=== PATIENT | male | born 1985 | race African-American/Black ===

== ENCOUNTER → 2019-10-17 | Day surgery (SDC) | payer OTHER ==
[~2019-10-17] MED LIST: ACETAMINOPHEN 325 MG TABLET PO PRN; ALBUTEROL SULFATE 2.5 MG/3 ML NEBU. NEB PRN; ASPI81TA50 PO; ATOR20TA58 PO; ATROPINE 0.5 MG/5 ML DISP.SYRIN. IV PRN; GABA-587 PO; IV RINGERS SOLUTION,LACTATED 1,000 ML IV SCH; LIDOCAINE 2% PF Vial for OR 5 ML VIAL. ONE; LOSA50TA86 PO; MELO15TA23 PO; MIDAZOLAM HCL PF 2 MG/2 ML VIAL. IV PRN; NORT25CA PO; OMEP-229 PO; OMEP40CA45 PO; ONDANSETRON PF 4 MG/2 ML VIAL. IV PRN; PHENOL ORAL SPRAY 177ML BOTTLE. MM PRN; PROPOFOL 20 ML IV ONE; SUCR1TAB35 PO; XOPENEX HFA15 GM IH; diphenhydrAMINE 50 MG/ML VIAL IV PRN
[2019-10-17 11:42] VITALS: BP 147/91
--- NOTE | 2019-10-21 14:07 | PATHOLOGY ---
[facility] Accession Number: [id number] . 01 Material submitted: . stomach - ANTRUM BIOPSY . 01 Clinical history: . Ulcer. . 02 Diagnosis: Gastric biopsies, antrum: - Chronic gastritis, moderate. . ([facility]; 10/21/2019) S 10/21/2019 1000 Local . 02 Comment: Sections of the gastric antral biopsy show congestion and moderate chronic inflammation. A properly controlled immunoperoxidase stain for Helicobacter is negative for Helicobacter organisms. There is no evidence of malignancy. ([facility]; 10/21/2019) . . Special stain performed: Immunoperoxidase stain for Helicobacter . 02 Electronically signed: . Froylan Wayne MD, Pathologist NPI- [id number] . 01 Gross description: . Received in formalin labeled "Mendoza, Buddy, antrum BX gastritis" is a 0.6 x 0.4 x 0.1 cm aggregate of epstein-brown mucosa fragments. The specimen is submitted in A1. ([facility]; 10/18/2019) [facility] 10/18/2019 1004 Local . 02 Pathologist provided ICD-10: K29.50 . 02 CPT . 387824, [id number] Specimen Comment: A courtesy copy of this report has been sent to [phone] Specimen Comment: Report sent to Performed at: 01 [facility] [address], [place] [id number] MD Adelso Peñaloza MD Phone: [phone] Performed at: 02 [facility] [address], [place] [id number] MD Froylan Wayne MD Phone: [phone]
== END ==
LOC: SURG 09:37 → EEVIPCON 10:30
PROVIDERS: ATTEND Internal Medicine Gastroenterology
DX: K26.9 Duodenal ulcer, unspecified as acute or chronic, without hemorrhage or perforation (principal); K29.50 Unspecified chronic gastritis without bleeding; K29.00 Acute gastritis without bleeding
CPT/HCPCS: 43239; 88305; 88342; J2704; J7120; J2001